=== PATIENT | male | born 1940 | race Caucasian/White ===

== ENCOUNTER 2017-03-25 11:39 | Day surgery (SDC) | payer MEDICARE, OTHER ==
[~2017-03-25] VITALS: Ht 165.1 cm; Wt 63.5 kg
[~2017-03-25 11:39] MED LIST: ALBU8.5H2 INHALATION; LORA1TAB PO; Lactated Ringer's 1,000 ML IV ONE; MULT-1073 PO; NIAC-9 PO; OMEP20CA11 PO; PRE20 PO; TAMS0.4C29 PO; TAMS0.4C98 PO; [UNRECOGNIZED DRUG - OTHER] PO
[2017-03-25] MEDS ORDERED: Ketamine 10 mg/mL 20 mL Inj ONE (11:40)
[2017-03-25] MEDS ORDERED: Propofol 10,000 mCg/mL 20 mL Inj ONE (11:40)
[2017-03-25] MEDS ORDERED: TURM500C7 PO (12:32)
[2017-03-25] MEDS ORDERED: CALC-1003 PO (12:32)
[2017-03-25] MEDS ORDERED: SAW450CA4 PO (12:32)
[2017-03-25] MEDS ORDERED: GLUC100016 PO (12:32)
[2017-03-25] MEDS ORDERED: BECL8.7A6 INHALATION (12:32)
[2017-03-25] MEDS ORDERED: LACT1CAP65 PO (12:32)
[2017-03-25 12:46] VITALS: BP 127/67; PULSE 56; RESP 15; O2SAT 97
--- NOTE | 2017-03-25 13:13 | PCM.HPANE ---
Patient Data Date of Service: Mar 25, 2017 Surgeon Admitting Provider: Attending Provider:Neto Solis MD Primary Care Physician:Awais Ingram MD Other Provider:Dar Cerda Anesthesia Reason for Visit Dilated Pancreatic Duct Ht/WT & BMI Height (Feet): 5 Height (Inches): 5 Weight (Kilograms): 63.5 Body Mass Index 23.00 Allergies Coded Allergies: Penicillins (Verified Allergy, Severe, rash, 12/12/13) Sulfa (Sulfonamide Antibiotics) (Verified Allergy, Severe, rash, 12/12/13) Past Anesthesia History Anesthesia History: Denies:: Anesthesia Reactions, Malignant Hyperthermia Diabetes History Hx Diabetes?: No MRSA MRSA: No Medications Hypertension Medication: No Home Meds Incl Beta Adele: No Reported Medications Turmeric Root Extract (Turmeric)500 Mg Capsule1,000 Mg PO 03/25/17 Lactobacillus Acidophilus (Probiotic)1 Each Capsule1 Each PO 03/25/17 [place] Fruit ([place])450 Mg [id number] Mg PO 03/25/17 Calcium Citrate/Vitamin D3 (Calcium Citrate +Vit D3 Tablet)200 Mg Calcium-250 Unit Tablet1 Each PO 03/25/17 Glucosamine Sulfate 2Kcl (Glucosamine)1,000 Mg Tablet1,550 Mg PO 03/25/17 Beclomethasone Dipropionate (Qvar)8.7 Gm Aer.w.adap1 Puff INHALATION BID #8.7 GM 03/25/17 Multivits-Min/FA/Lycopene/Lut (Centrum Silver Tablet)1 Each Tablet1 Each PO DAILY 03/24/17 Omeprazole 20 Mg Capsule.dr20 Mg PO DAILY Ref 0 11/14/15 Albuterol HFA (Proair HFA)8.5 Gm Hfa.aer.ad1 Puffs INHALATION prn #1 INHALER 11/07/15 Tamsulosin (Flomax)0.4 Mg Capsule1-2 Tab PO HS Ref 0 04/02/14 Discontinued Reported Medications Tamsulosin ER 0.4 Mg Cap.er.24h0.4 Mg PO DAILY Ref 0 03/24/17 Prednisone (PredniSONE)20 Mg Rfdzgi20 Mg PO DAILY Ref 0 03/24/17 Niacin ER 500 Mg Tablet1,000 Mg PO TID 03/24/17 Lorazepam 1 Mg Tablet2 Mg PO HS PRN For Insomnia Ref 0 03/24/17 [excedrin otc] No Conflict Check1 Tab PO DAILY PRN For Pain 07/30/16 Turmeric Root Extract (Turmeric)500 Mg [id number] Mg PO occ 07/30/16 [place] Xtr/Zinc Picolin ([place] Capsule)1 Each Capsule1 Each PO DAILY 07/30/16 Beclomethasone Dipropionate (Qvar)8.7 Gm Aer.w.adap1 Puff INHALATION DAILY 04/02/16 Calcium Cit/Mag/D3/Zn/Chiller Technician/Nabor (Calcium Citrate Plus Tablet)1 Each Tablet1 Each PO DAILY 01/02/16 Diphenoxylate/Atropine 2.5-0.025 mg (Lomotil 2.5-0.025 mg)1 Each Tablet1 Tablet PO Q6HRS PRN PRN For Diarrhea or Loose Stool 12/05/15 Multivitamin (Multivitamins)1 Each Capsule1 Each PO DAILY 11/21/15 Lactobacillus Acidophilus (Probiotic)1 Each Capsule1 Each PO occ 07/17/14 Glucosamine/MSM/Chondroitin A (Glucosamine Chondroit MSM Tab)1 Each Tablet1 Each PO OCC 07/17/14 Aspirin 325 Mg Tablet.dr325 Mg PO PRN Ref 0 07/17/14 History History of ENT Problems?: Yes HEENT History: Positive for:: Dysphagia Denies:: Cataracts Hearing Problem Sinus Problem Denture Type: None Teeth Condition: Within Normal Limits Hx of Heart Problems?: Yes Cardiovascular History: Denies:: Chest Pain (CARDIAC TESTING DONE REMOTELY WNL) Congestive Heart Failure Hypertension (HYPERLIPIDEMIA) Hx of Respiratory Problem?: Yes Respiratory History: Positive for:: Asthma (last use albuterol 3months ago) Denies:: Tuberculosis Use of C-PAP Machine Hx Neurologic Problems?: Yes Neurological History: Positive for:: Headaches Denies:: CVA Seizures TIA Hx of GI Problems?: Yes Gastrointestinal History: Positive for:: Gastroesphageal Reflux Hiatal Hernia Other GI Pertinent History: dilated pancreatic duct Hx of Problems?: Yes HX of Peritoneal Dialysis: No Male Hx: Positive for:: Prostate Problems (BPH) Skin History: Denies:: History Skin Disorders? 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) Denies:: Endocrine Disease Hospitalization Thyroid Disease History Blood Transfusions: Denies:: Blood Transfusions Hx Diabetes: No Hx Alcohol Use: Yes (WINE COUPLE TIME A WEEK)Hx Substance Use: No Smoking Status: Former Smoker (remote pipe smoker 45 years ago) Unknown if Ever Smoker Have You Smoked inLast 12 mo: No Stop/Bang Treated for Sleep Apnea?: No Do You Have a CPAP Machine?: No S-Snoring: Do You Snore Loudly: No T-Tired: feel tired, fatigued: No O-Obsered: Observed not breath: No P-Blood Pressure: treated: No B- Body Mass Index > 35 kg/m2: No A- Age over 50: Yes N- Neck Large Circumference: No G- Gender Male: Yes DENIZ Total Score: 2 DENIZ Risk Assessment: Low Risk, <3 Yes Risk Assessment Category Category 1A: Patient has history of documented sleep apnea, and HAS NOT received any narcotic, sedative or anesthesia administration during this stay. Category 1B: Patient has history of documented sleep apnea, and HAS received any narcotic , sedative or anesthesia administration during this stay Category 2: Patient has SUSPECTED Obstructive Sleep Apnea, and HAS received any narcotic , sedative or anesthesia administration during this stay. Category 3: Patient has SUSPECTED Obstructive Sleep Apnea and HAS NOT received narcotic, sedative or anesthesia administration during this stay. Category 4: Outpatient in Procedural Areas with known sleep apnea or who screen positive for High Risk via the STOP/BANG questionnaire. Exam Exam Vital Signs Vital Signs Date Time Temp Pulse Resp B/P Pulse Ox O2 Delivery O2 Flow Rate FiO2 03/25/17 12:46 36.4 56 15 127/67 97 Room Air General Appearance: Alert, Oriented X3, Cooperative, No Acute Distress HEENT/AIRWAY: MP 2, Neck Movement (from), Mouth Opening (>3), Other (TMD3) Lungs: Diminished Heart: Exam Unremarkable, Regular Rate/Rhythm (bradycardic), Normal S1, Normal S2, No Murmurs/Rubs/Gallops Plan Impression Patient chart reviewed, patient interviewed and anesthestic plan with risks, benefits, and alternatives discussed, and informed consent obtained. NPO per Anesth. Guidelines: Yes ASA Physical Status: ASA2 Mod Systemic Disease Anesthetic Plan: TIVA Bene/Risks/Altern/Consents: Yes HP Complete Prior to Induction: Yes Regan Gross MD Mar 25, 2017 13:13
[2017-03-25 14:10] VITALS: BP 104/69; PULSE 75; RESP 16; O2SAT 95
[2017-03-25 14:20] VITALS: BP 114/70; PULSE 65; O2SAT 97
[2017-03-25 14:30] VITALS: BP 122/78; PULSE 64; O2SAT 98
[2017-03-25 14:40] VITALS: BP 121/69; PULSE 69; O2SAT 98
--- NOTE | 2017-03-25 14:57 | ENDO ---
[address] [address] ENDOSCOPY PROCEDURE PATIENT: TERI STANLEY : 1940 MR#: [id number] ADMIT: 03/25/2017 JOB ID: [id number] DATE: 03/25/2017 PROCEDURE: EUS exam. INDICATION: Focal segmental dilation of the pancreatic duct. Patient's ASA classification , Mallampati score, medications per Dr. Regan Gross's anesthesia report. INSTRUMENT USED: GIF ECT 180 linear echo endoscope. PROCEDURE DETAILS: After informed consent was obtained, the patient was brought into the GI suite, where he was placed on oxygen via nasal cannula and monitored with continuous pulse oximeter, telemetry, and blood pressure monitoring. A time-out was performed. Then, he was placed in a left lateral decubitus position and medications were administered for sedation. A bite block was placed. The linear echo endoscope was then introduced through the bite block and advanced under direct visualization to second portion of the duodenum. Linear echo endoscopic imaging demonstrated the following. 1. Starting in the body of the pancreas, the pancreatic duct was dilated to approximately 5.3 cm and this extended into the tail of the pancreas. When the pancreatic duct was followed to the head of the pancreas, there was focal narrowing noted of the pancreatic duct. No mass lesions were seen to explain this focal narrowing. The pancreatic parenchyma itself, there was some linear echogenic stranding noted. 2. The bile duct was identified and appeared to be normal in course and caliber. 3. Flow was seen in the portal vein, splenic vein and splenic artery. 4. Examined portions of the left lobe of the liver were unremarkable. 5. Left adrenal gland was identified and appeared unremarkable. 6. The celiac axis was seen and appeared unremarkable. IMPRESSION: Focal segmental dilation of the pancreatic duct in the body and tail of the pancreas without any obvious mass lesion. This is suggestive of pancreatic duct stricture. I did have discussions with the patient in clinic regarding referral to [place] for possible endoscopic retrograde cholangiopancreatography for pancreatic duct stricture. The patient however deferred referral to tertiary care center. RECOMMENDATIONS: Repeat MRI, MRCP in three months and follow clinically. COMPLICATIONS: None. ESTIMATED BLOOD LOSS: Zero.
== END 2017-03-25 23:59 | disposition home or self-care (01) ==
LOC: END 11:39
PROVIDERS: ATTEND Internal Medicine Gastroenterology
DX: K86.89 Other specified diseases of pancreas (principal); R06.00 Dyspnea, unspecified; G51.0 Bell's palsy; F41.9 Anxiety disorder, unspecified
CPT/HCPCS: 43237; J2250; J7120